=== PATIENT | female | born 1950 | race Caucasian/White ===

== ENCOUNTER → 2025-10-05 10:53 | Outpatient (REF) | payer MEDICARE, SELFPAY | LOC: RAD 10:53 | PROVIDERS: ATTENDING PHYSICIAN Nurse Practitioner Gerontology; FAMILY PHYSICIAN Internal Medicine | DX: Z96.611 Presence of right artificial shoulder joint (principal); T84.84XA Pain due to internal orthopedic prosthetic devices, implants and grafts, initial encounter; S43.421A Sprain of right rotator cuff capsule, initial encounter | CPT/HCPCS: 76882 ==